=== PATIENT | female | born 1965 | race Two or more races ===

== ENCOUNTER 2017-10-25 09:23 | Emergency (ER) | payer OTHER ==
[~2017-10-25] VITALS: Ht 172.7 cm; Wt 111.1 kg
[~2017-10-25 09:23] MED LIST: ADVAIR 2501 DISK W/1 IH; ALBUTEROL17 G1 IH; CATAPRES0.1 MG; DIOVAN HCT 320/1 TA1 PO; DIOVAN160 M1 PO; DULERA; ELAVIL; ENALAPRIL MALEAT5 MG; GLUCOPHAGE XR750 MG; KLONOPIN0.5 MG/TAB; KLONOPIN2 MG/TAB PO; LASIX40 MG PO; MEDROL4 MG; NEURONTIN300 MG PO; OXYCOTIN; PERCOCET 10-3251 TAB; SINGULAIR10 MG PO; SYNTHROID150 MCG; SYNTHROID50 MCG PO; VASOTEC5 MG PO; ZANAFLEX4 M1 PO; [UNRECOGNIZED DRUG - OTHER]
[2017-10-25] MEDS ORDERED: ZANAFLEX4 MG PO (10:09)
[2017-10-25] MEDS ORDERED: TRAMADOL HCL50 MG PO (10:09)
== END 2017-10-25 13:09 | disposition home or self-care (01) ==
LOC: ER 09:23
DX: M54.2 Cervicalgia (principal); M25.512 Pain in left shoulder

== ENCOUNTER 2024-05-07 20:23 | Emergency (ER) | payer OTHER ==
[~2024-05-07] VITALS: Ht 172.7 cm; Wt 95.3 kg
[~2024-05-07 20:23] MED LIST changes: +AFRIN15 ML NASAL; +AYR SALINE NA14.1 GM NASAL; +CANDESARTAN-HC1 EAC2; +CARDURA XL4 MG/BOTTL PO; +CATAFLAM50 MG PO; +DICLOFENAC POTA50 M1 PO; +DIOVAN; +ENALAPRIL MALEAT5 MG PO; +GLUCOPHAGE XR500 MG; +HUMIRA(CF)40 MG/0.1 SQ; +LASIX20 MG; +LOSARTAN POTASS50 MG; +METHOTREXA25 MG/1 M5 IJ; +STERILE SALINE126 ML; +SYNTHROID137 MCG PO; +SYNTHROID175 MCG; +TRAMADOL HCL50 MG PO; +ZANAFLEX4 MG PO; +[UNRECOGNIZED DRUG - OTHER]
[2024-05-07] MEDS ORDERED: SYMBICORT 16010.2 GM (20:53)
[2024-05-07] MEDS ORDERED: WELLBUTRIN SR100 MG (20:53)
[2024-05-07] MEDS ORDERED: 0.9 % SODIUM CHLORIDE 1,000 ML IV SCH (21:16)
[2024-05-07 23:06] LABS: HEMATOCRIT 43.2 % (36.0-45.00); HEMOGLOBIN 14.7 g/dL (12.0-15.00); MEAN CELL VOLUME 91.3 fL (80.00-100.00); MEAN CORPUSCULAR HEMOGLOBIN 31.1 pg (27.00-32.0); MEAN CORPUSCULAR HGB CONC 34.1 g/dl (32.0-36.0); PLATELET COUNT 271 K/uL (150-450); RED BLOOD COUNT 4.73 M/uL (4.00-6.00); RED CELL DISTRIBUTION WIDTH 12.9 % (11.5-14.5)
[2024-05-07 23:57] LABS: PH,URINE 5.5 (5.0-8.0); URINE APPEARANCE Cloudy; URINE BILIRRUBIN Negative (NEGATIVE); URINE BLOOD Negative; URINE COLOR Yellow; URINE KETONE Trace (NEGATIVE); URINE LEUKOCYTE Trace; URINE NITRATE Negative; URINE PROTEIN Trace (NEGATIVE)
[2024-05-08 00:16] LABS: URINE BACTERIA 8254.4 uL (0.0-1933); URINE CAST 5.74 uL (0.0-1.40); URINE EPITHELIAL CELLS 91.9 uL (0.0-38.8); URINE RBC 49.3 uL (0.0-20.8); URINE WBC 139.8 uL (0.0-23.2)
[2024-05-08 00:50] LABS: URINE GLUCOSE >=1000 MG/DL (NEGATIVE)
[2024-05-08 00:57] LABS: URINE CRYSTALS MANY /HPF
[2024-05-08] MEDS ORDERED: FAMOTIDINE/PF 20 MG/2 ML VIAL IV SCH ×2 (02:53→09:00)
[2024-05-08 03:57] LABS: AMYLASE 48 U/L (25-115); LIPASE 25 U/L (13-75)
[2024-05-08 03:58] LABS: CALCIUM 9.1 mg/dL (8.5-10.1); CREATININE SERUM 1.18 mg/dL (0.55-1.02); GFR 46.72; POTASSIUM 3.19 mEq/L (3.5-5.1)
== END 2024-05-08 05:18 | disposition home or self-care (01) ==
LOC: ER 20:25
PROVIDERS: Emergency Medicine
DX: K52.89 Other specified noninfective gastroenteritis and colitis (principal)

== ENCOUNTER 2024-07-13 13:11 | Emergency (ER) | payer OTHER ==
[~2024-07-13] VITALS: Ht 172.7 cm; Wt 98.4 kg
[~2024-07-13 13:11] MED LIST changes: +SYMBICORT 16010.2 GM; +WELLBUTRIN SR100 MG
[2024-07-13] MEDS ORDERED: KETOROLAC TROMETHAMINE 60 MG VIAL IM ONE ×2 (13:35→13:45)
[2024-07-13] MEDS ORDERED: ATORVASTATIN CA40 MG PO (13:37)
[2024-07-13] MEDS ORDERED: LASIX40 MG (13:38)
[2024-07-13] MEDS ORDERED: TEZSPIRE210 MG/1.1 (13:39)
[2024-07-13] MEDS ORDERED: HUMIRA40 MG/0.2 (13:40)
[2024-07-13] MEDS ORDERED: LIDOCAINE HCL 1% 10ML VIAL ONE (13:48)
[2024-07-13] MEDS ORDERED: DIPHTH,PERTUSS(ACELL),TET VAC 0.5 ML SYRINGE IM ONE ×2 (13:58→14:00)
[2024-07-13] MEDS ORDERED: DUI500 PO (15:15)
== END 2024-07-13 15:20 | disposition home or self-care (01) ==
LOC: ER 13:11
DX: S81.022A Laceration with foreign body, left knee, initial encounter (principal); W18.39XA Other fall on same level, initial encounter; Y93.89 Activity, other specified; Y92.89 Other specified places as the place of occurrence of the external cause; S09.8XXA Other specified injuries of head, initial encounter
CPT/HCPCS: 12004; 70450; 72100; 73560; 90471; 90714; 96372; 99284; J1670; J1885

== ENCOUNTER 2025-02-07 16:51 | Emergency (ER) | payer OTHER ==
[~2025-02-07] VITALS: Ht 172.7 cm; Wt 99.8 kg
[~2025-02-07 16:51] MED LIST changes: +ATORVASTATIN CA40 MG PO; +DUI500 PO; +HUMIRA40 MG/0.2; +LASIX40 MG; +TEZSPIRE210 MG/1.1
[2025-02-07 17:32] VITALS: BP 123/63; O2SAT 98
[2025-02-07] MEDS ORDERED: KETOROLAC TROMETHAMINE 30 MG VIAL IM STA (17:59)
[2025-02-07] MEDS ORDERED: 0.9 % SODIUM CHLORIDE 1,000 ML IV STA (17:59)
[2025-02-07] MEDS ORDERED: FAMOTIDINE/PF 20 MG/2 ML VIAL IV STA (17:59)
[2025-02-07] MEDS ORDERED: ONDANSETRON HCL 2 MG/ML VIAL IV STA (17:59)
[2025-02-07] MEDS ORDERED: CEFTRIAXONE SODIUM 1,000 MG VIAL IV ONE (18:00)
[2025-02-07] MEDS ORDERED: KETOROLAC TROMETHAMINE 30 MG VIAL ONE (19:15)
[2025-02-07] MEDS ORDERED: ONDANSETRON HCL 2 MG/ML VIAL ONE (19:15)
[2025-02-07] MEDS ORDERED: CEFTRIAXONE SODIUM 1,000 MG VIAL ONE (19:15)
[2025-02-07] MEDS ORDERED: FAMOTIDINE/PF 20 MG/2 ML VIAL ONE (19:16)
[2025-02-07 19:46] LABS: BASO % 0.3 % (0.1-1.2); EOS # 0.04 (0.04-0.54); EOS % 0.4 % (0.7-7.0); LYMPH # 1.95 (1.18-3.74); LYMPH % 20.4 % (19.3-53.1); MEAN PLATELET VOLUME 10.40 fl (9.4-12.4); MONO # 0.56 (0.24-0.82); MONO % 5.9 % (4.7-12.5); NEUT # 6.95 (1.56-6.13); NEUT % 72.9 % (34.0-71.1); RED CELL DISTRIBUTION WIDTH 11.9 % (11.6-14.4)
[2025-02-07 20:07] LABS: URINE APPEARANCE Turbid; URINE BILIRRUBIN Negative (NEGATIVE); URINE BLOOD Large; URINE COLOR Yellow; URINE KETONE Negative (NEGATIVE); URINE LEUKOCYTE Moderate; URINE NITRATE Negative; URINE UROBILINOGEN 1.0 E.U./dl
[2025-02-07 20:11] LABS: BUN CREA RATIO 14.0 (7.0-25.0); CREATININE SERUM 1.24 mg/dL (0.55-1.02); GFR 44.12; GLUCOSE FASTING 90.0 mg/dL (65-100); OSMOLALITY SERUM 284.0 MOSM/KG (275-295)
[2025-02-07 20:12] LABS: URINE EPITHELIAL CELLS 73.5 uL (0.0-38.8); URINE RBC 1062.9 uL (0.0-20.8)
[2025-02-07 20:43] LABS: TYPE CELLS SQUAMOUS; URINE CAST 0.66 uL (0.0-1.40); URINE GLUCOSE >=1000 MG/DL (NEGATIVE); URINE PROTEIN 100 (NEGATIVE); URINE WBC > 5548.3 uL (0.0-23.2)
[2025-02-07 20:44] LABS: URINE CRYSTALS FEW /HPF
[2025-02-07] MEDS ORDERED: CIPRO500 MG PO (21:56)
== END 2025-02-07 22:56 | disposition home or self-care (01) ==
LOC: ER 16:51
PROVIDERS: General Practice
DX: N39.0 Urinary tract infection, site not specified (principal); K57.30 Diverticulosis of large intestine without perforation or abscess without bleeding; E11.9 Type 2 diabetes mellitus without complications; Z79.84 Long term (current) use of oral hypoglycemic drugs; I10 Essential (primary) hypertension; M79.7 Fibromyalgia; Z87.09 Personal history of other diseases of the respiratory system
CPT/HCPCS: 36415; 74176; 96365; 96366; 96372; 99284; J0696; J1885; J2405; J3490; J7030